=== PATIENT | male | born 1940 | race Caucasian/White ===

== ENCOUNTER 2017-11-26 08:30 | Outpatient (CLI) | payer OTHER | END 2017-11-26 08:41 | disposition home or self-care (01) | LOC: RAD 08:30 | DX: R05 Cough (principal) ==

== ENCOUNTER 2018-04-08 10:06 | Outpatient (CLI) | payer OTHER | END 2018-04-08 12:00 | disposition home or self-care (01) | LOC: LAB 10:06 | DX: H53.9 Unspecified visual disturbance (principal) ==

== ENCOUNTER 2018-04-08 10:21 | Outpatient (CLI) | payer OTHER | END 2018-04-08 12:06 | disposition home or self-care (01) | LOC: RAD 10:21 | DX: J43.8 Other emphysema (principal) ==

== ENCOUNTER 2018-04-24 10:18 | Outpatient (CLI) | payer OTHER | END 2018-04-24 15:00 | disposition home or self-care (01) | LOC: LAB 10:18 | DX: R97.20 Elevated prostate specific antigen [PSA] (principal) ==

== ENCOUNTER 2018-05-29 09:41 | Outpatient (CLI) | payer OTHER | END 2018-05-29 09:58 | disposition home or self-care (01) | LOC: TOM 09:41 | DX: K56.699 Other intestinal obstruction unspecified as to partial versus complete obstruction (principal); K52.89 Other specified noninfective gastroenteritis and colitis ==

== ENCOUNTER 2018-06-05 11:02 | Outpatient (CLI) | payer OTHER | END 2018-06-05 16:32 | disposition home or self-care (01) | LOC: TOM 11:02 | DX: R91.8 Other nonspecific abnormal finding of lung field (principal) ==

== ENCOUNTER → 2020-02-16 09:02 | Outpatient (CLI) | payer OTHER | END | disposition home or self-care (01) | LOC: LAB 02-15 15:04 | PROVIDERS: ATTEND Internal Medicine Cardiovascular Disease | DX: I10 Essential (primary) hypertension (principal); E11.9 Type 2 diabetes mellitus without complications; D68.8 Other specified coagulation defects ==

== ENCOUNTER 2020-02-16 09:41 | Outpatient (CLI) | payer OTHER | END 2020-02-16 12:44 | disposition home or self-care (01) | LOC: TOM 09:41 | PROVIDERS: ATTEND Internal Medicine Cardiovascular Disease | DX: J44.9 Chronic obstructive pulmonary disease, unspecified (principal) ==

== ENCOUNTER → 2020-12-28 07:54 | Outpatient (CLI) | payer OTHER | END | disposition home or self-care (01) | LOC: LAB 07:54 | DX: K52.89 Other specified noninfective gastroenteritis and colitis (principal); K86.2 Cyst of pancreas; E03.8 Other specified hypothyroidism; E11.9 Type 2 diabetes mellitus without complications; N40.0 Benign prostatic hyperplasia without lower urinary tract symptoms; E78.49 Other hyperlipidemia ==

== ENCOUNTER → 2020-12-28 | Outpatient (CLI) | payer OTHER ==
[~2020-12-28] MED LIST: ALPHAGAN P5 ML; BENZONATATE200 M1 PO; BREO ELLIPTA 21 EACH IH; BUDESONIDE0.25 MG/2 IH; CARdura 2MG TABLET PO; LEVALBUTER1.25 MG/0. IH; LEVALBUTER1.25 MG/3 IH; LIPITOR40 MG PO; LOSARTAN-HCTZ1 EAC2 PO; MEDROL4 MG PO; MESALAMINE4 GM/60 M1; MESALAMINE800 MG PO; RELPAX40 MG PO; TOPROL XL25 M1 PO; ULTRACET PO; XOPENEX CO1.25 MG/0. IH
== END | disposition home or self-care (01) ==
LOC: MRI 09:23
PROVIDERS: ATTEND Pain Medicine Interventional Pain Medicine
DX: M54.2 Cervicalgia (principal)
CPT/HCPCS: 72141

== ENCOUNTER → 2021-04-27 06:38 | Outpatient (CLI) | payer OTHER | END | disposition home or self-care (01) | LOC: MRI 06:38 | DX: C25.9 Malignant neoplasm of pancreas, unspecified (principal) | CPT/HCPCS: 74181; 74183 ==

== ENCOUNTER → 2021-05-22 | Outpatient (CLI) | payer OTHER | END | disposition home or self-care (01) | LOC: MRI 08:44 | DX: M25.422 Effusion, left elbow (principal); M25.522 Pain in left elbow; M25.512 Pain in left shoulder | CPT/HCPCS: 72142; 72147; 72158 ==

== ENCOUNTER → 2021-05-23 | Outpatient (CLI) | payer OTHER | END | disposition home or self-care (01) | LOC: MRI 11:23 | PROVIDERS: ATTEND Orthopaedic Surgery | DX: M25.522 Pain in left elbow (principal); R60.0 Localized edema | CPT/HCPCS: 73221 ==

== ENCOUNTER → 2021-06-08 | Outpatient (CLI) | payer OTHER | END | disposition home or self-care (01) | LOC: MRI 12:27 | PROVIDERS: ATTEND Orthopaedic Surgery | DX: M25.422 Effusion, left elbow (principal); M25.522 Pain in left elbow; S42.402A Unspecified fracture of lower end of left humerus, initial encounter for closed fracture | CPT/HCPCS: 73221 ==

== ENCOUNTER 2021-07-05 10:25 | Outpatient (CLI) | payer OTHER | END 2021-07-05 10:35 | disposition home or self-care (01) | LOC: RAD 10:25 | PROVIDERS: ATTEND Internal Medicine Cardiovascular Disease | DX: M12.88 Other specific arthropathies, not elsewhere classified, other specified site (principal) ==

== ENCOUNTER → 2021-07-05 | Outpatient (CLI) | payer OTHER | END | disposition home or self-care (01) | LOC: NUCLEAR 07:00 | PROVIDERS: ATTEND Internal Medicine Cardiovascular Disease | DX: I10 Essential (primary) hypertension (principal) ==

== ENCOUNTER 2021-12-19 13:50 | Outpatient (CLI) | payer OTHER | END 2021-12-19 14:20 | disposition home or self-care (01) | LOC: PPH VACUNA 13:50 | PROVIDERS: ATTEND Emergency Medicine Pediatric Emergency Medicine | DX: Z23 Encounter for immunization (principal) ==

== ENCOUNTER 2022-03-20 17:37 | Inpatient (IN) | payer OTHER ==
[~2022-03-20] VITALS: Ht 175.3 cm; Wt 86.2 kg
[2022-03-20] MEDS ORDERED: SYNTHROID50 MCG (17:48)
[2022-03-20] MEDS ORDERED: LIPITOR40 M1 (17:48)
--- NOTE | 2022-03-20 17:50 | NUR ---
SE RECIBE MASCULINO ALERTA Y ORIENTADO POR ANTHONY ESFERAS, AMBULANDO. REFIERE QUE PRESENTA VOMITOS DESDE NOHEMY EN LA NOCHE Y DOLOR ABDOMINAL.
--- NOTE | 2022-03-20 18:36 | NUR ---
SE ORIENTA PTE SOBRE TX A SEGUIR, EL CUAL REFIERE ENTENDER. SE COLECTAN MUESTRAS Y SE CANALIZA PTE UTILIZANDO MEDIDAS ASEPTICAS. SE ADMISTRAN MEDICAMENTOS KRISHNA ORDEN MEDICA.
[2022-03-21] MEDS ORDERED: BUDESONIDE0.5 MG/21 (08:54)
[2022-03-21] MEDS ORDERED: TRELEGY ELLIPT1 EAC1 (08:54)
[2022-03-21] MEDS ORDERED: DALIRESP500 MCG (08:55)
[2022-03-21] MEDS ORDERED: TAMSULOSIN HCL0.4 MG (08:55)
[2022-03-21] MEDS ORDERED: ALBUTEROL2.5 MG/3 M (08:55)
== END 2022-03-29 17:27 | disposition home or self-care (01) | DRG 391 ==
LOC: ER 17:37 → MEDI 22:56
PROVIDERS: ADMIT Internal Medicine; ATTEND Internal Medicine
PROC: BW21ZZZ Computerized Tomography (CT Scan) of Abdomen and Pelvis (ICD-10-PCS; principal; 2022-03-20)
PROC: 02HV33Z Insertion of Infusion Device into Superior Vena Cava, Percutaneous Approach (ICD-10-PCS; 2022-03-23)
PROC: CD271ZZ Tomographic (Tomo) Nuclear Medicine Imaging of Gastrointestinal Tract using Technetium 99m (Tc-99m) (ICD-10-PCS; 2022-03-25)
DX: K29.00 Acute gastritis without bleeding (principal); I50.31 Acute diastolic (congestive) heart failure; K90.49 Malabsorption due to intolerance, not elsewhere classified; I13.0 Hypertensive heart and chronic kidney disease with heart failure and stage 1 through stage 4 chronic kidney disease, or unspecified chronic kidney disease; K28.9 Gastrojejunal ulcer, unspecified as acute or chronic, without hemorrhage or perforation; N18.30 Chronic kidney disease, stage 3 unspecified; J44.9 Chronic obstructive pulmonary disease, unspecified; Z85.07 Personal history of malignant neoplasm of pancreas; E78.49 Other hyperlipidemia; G47.33 Obstructive sleep apnea (adult) (pediatric)

== ENCOUNTER 2023-07-04 14:48 | Outpatient (CLI) | payer OTHER ==
[~2023-07-04 14:48] MED LIST changes: +ALBUTEROL2.5 MG/3 M; +BUDESONIDE0.5 MG/21; +DALIRESP500 MCG; +LIPITOR40 M1; +SYNTHROID50 MCG; +TAMSULOSIN HCL0.4 MG; +TRELEGY ELLIPT1 EAC1
== END 2023-07-04 14:55 | disposition home or self-care (01) ==
LOC: TOM 14:48
PROVIDERS: ATTEND Internal Medicine Cardiovascular Disease
DX: J12.1 Respiratory syncytial virus pneumonia (principal); J12.89 Other viral pneumonia

== ENCOUNTER 2023-07-07 08:57 | Inpatient (IN) | payer OTHER ==
[~2023-07-07] VITALS: Ht 170.2 cm; Wt 83.9 kg
[2023-07-07 10:16] LABS: HEMATOCRIT 34.1 % (39.0-48.0); HEMOGLOBIN 11.2 g/dL (13-16.00); MEAN CELL VOLUME 88.4 fL (80.0-100.00); MEAN CORPUSCULAR HEMOGLOBIN 28.9 pg (27.00-32.0); MEAN CORPUSCULAR HGB CONC 32.7 g/dl (32.0-36.0); PLATELET COUNT 227 K/uL (150-450); RED BLOOD COUNT 3.86 M/uL (4.00-6.00); RED CELL DISTRIBUTION WIDTH 19.5 % (11.5-14.5)
[2023-07-07 11:14] LABS: ALBUMIN 2.9 gm/dL (3.4-5.0); BILIRUBIN TOTAL 0.6 mg/dL (0.3-1.2); C-REACTIVE PROTEIN 0.79 MG/DL (0.00-0.29); CALCIUM 8.6 mg/dL (8.5-10.1); CREATININE SERUM 1.2 mg/dL (0.70-1.30); GFR 57.96; GLOBULINA 3.4 G/DL (2.4-3.5); POTASSIUM 3.58 mEq/L (3.5-5.1); TOTAL PROTEIN 6.3 gm/dL (6.4-8.2)
[2023-07-07 11:23] LABS: ABG PO2 74.5 mmHg (80-100); ABG pCO2 33.2 mmHg (35-45)
[2023-07-07 11:24] LABS: BASE EXCESS -2.5 mmol/l; Tco2 22.1 mmol/l; o2 32 %
[2023-07-07 11:25] LABS: allen test SATISFACTORY; puncture site RADIAL LEFT
[2023-07-07 19:30] LABS: INR 1.04; PARTIAL THROMBOPLASTIN TIME 25.6 SECONDS (22.0-34.0); PROTHROMBIN TIME 10.9 SECONDS (9.0-11.5)
[2023-07-08 09:39] LABS: PH,URINE 5.5 (5.0-8.0); URINE APPEARANCE Clear; URINE BACTERIA 57.9 uL (0.0-1933); URINE BILIRRUBIN Negative (NEGATIVE); URINE BLOOD Negative; URINE COLOR Yellow; URINE EPITHELIAL CELLS 30.6 uL (0.0-38.8); URINE GLUCOSE Negative (NEGATIVE); URINE LEUKOCYTE Moderate; URINE NITRATE Negative; URINE PROTEIN Trace (NEGATIVE); URINE RBC 9.6 uL (0.0-20.8); URINE UROBILINOGEN 0.2 E.U./dl; URINE WBC 155.4 uL (0.0-23.2)
[2023-07-11] MEDS ORDERED: LEVOTHYROXINE50 MCG PO (15:04)
[2023-07-11] MEDS ORDERED: DILTIAZEM 24HR180 MG PO (15:04)
[2023-07-11] MEDS ORDERED: LIPITOR40 M1 PO (15:04)
[2023-07-11] MEDS ORDERED: INTESTINEX680 M1 PO (15:04)
[2023-07-11] MEDS ORDERED: MEDROLPACK PO (15:04)
[2023-07-11] MEDS ORDERED: POM (MEDICAMENTO EN OP (15:04)
[2023-07-11] MEDS ORDERED: FAMOTIDINE20 MG PO (15:04)
[2023-07-11] MEDS ORDERED: DELZICOL400 M1 PO (15:04)
[2023-07-11] MEDS ORDERED: MONTELUKAST SOD10 MG PO (15:04)
[2023-07-11] MEDS ORDERED: LEVOFLOXACIN750 MG PO (15:04)
[2023-07-11] MEDS ORDERED: IPRAT-ALBUT 0.5-3 ML IH (15:04)
[2023-07-11] MEDS ORDERED: TAMS0.4C PO (15:04)
[2023-07-11] MEDS ORDERED: BUDESONIDE0.5 MG/2 M IH (15:04)
== END 2023-07-11 15:35 | disposition home or self-care (01) | DRG 194 ==
LOC: ER → MEDI 18:36
PROVIDERS: Emergency Medicine; General Practice; ADMIT Internal Medicine; ATTEND Internal Medicine
PROC: 3E0F7GC Introduction of Other Therapeutic Substance into Respiratory Tract, Via Natural or Artificial Opening (ICD-10-PCS; principal; 2023-07-07)
PROC: 3E0F7SF Introduction of Other Gas into Respiratory Tract, Via Natural or Artificial Opening (ICD-10-PCS; 2023-07-07)
DX: J18.8 Other pneumonia, unspecified organism (principal); J44.1 Chronic obstructive pulmonary disease with (acute) exacerbation; N17.9 Acute kidney failure, unspecified; G47.33 Obstructive sleep apnea (adult) (pediatric); R09.02 Hypoxemia; I12.9 Hypertensive chronic kidney disease with stage 1 through stage 4 chronic kidney disease, or unspecified chronic kidney disease; N18.9 Chronic kidney disease, unspecified; E03.9 Hypothyroidism, unspecified; Z87.891 Personal history of nicotine dependence; Z85.07 Personal history of malignant neoplasm of pancreas

== ENCOUNTER 2023-07-12 22:24 | Inpatient (IN) | payer OTHER ==
[~2023-07-12] VITALS: Ht 152.4 cm; Wt 8618.3 kg
[~2023-07-12 22:24] MED LIST changes: +BUDESONIDE0.5 MG/2 M IH; +DELZICOL400 M1 PO; +DILTIAZEM 24HR180 MG PO; +FAMOTIDINE20 MG PO; +INTESTINEX680 M1 PO; +IPRAT-ALBUT 0.5-3 ML IH; +LEVOFLOXACIN750 MG PO; +LEVOTHYROXINE50 MCG PO; +LIPITOR40 M1 PO; +MEDROLPACK PO; +MONTELUKAST SOD10 MG PO; +POM (MEDICAMENTO EN OP; +TAMS0.4C PO
[2023-07-13 01:21] LABS: MEAN CELL VOLUME 88.4 fL (80.0-100.00); MEAN CORPUSCULAR HEMOGLOBIN 28.6 pg (27.00-32.0); MEAN CORPUSCULAR HGB CONC 32.4 g/dl (32.0-36.0); PLATELET COUNT 221 K/uL (150-450); RED BLOOD COUNT 3.85 M/uL (4.00-6.00); RED CELL DISTRIBUTION WIDTH 19.5 % (11.5-14.5)
[2023-07-13 01:31] LABS: ALBUMIN 3.2 gm/dL (3.4-5.0); BILIRUBIN TOTAL 0.55 mg/dL (0.3-1.2); CALCIUM 9.4 mg/dL (8.5-10.1); CREATININE SERUM 1.55 mg/dL (0.70-1.30); GFR 43.14; GLOBULINA 3.2 G/DL (2.4-3.5); POTASSIUM 3.95 mEq/L (3.5-5.1); TOTAL PROTEIN 6.4 gm/dL (6.4-8.2)
[2023-07-13 04:38] LABS: ABG PH 7.284 (7.35-7.45); ABG pCO2 46.3 mmHg (35-45)
[2023-07-13 04:39] LABS: BASE EXCESS -5.3 mmol/l; BICARBONATE 21.5 mmol/l (23-25); SaO2 97.1 %; Tco2 22.9 mmol/l
[2023-07-13 04:40] LABS: allen test SATISFACTORY; o2 36 %; puncture site RADIAL RIGHT
[2023-07-13 09:19] LABS: ABG PH 7.362 (7.35-7.45); ABG PO2 84.9 mmHg (80-100); BASE EXCESS -3.8 mmol/l; BICARBONATE 21.1 mmol/l (23-25); SaO2 95.8 %; Tco2 22.2 mmol/l
[2023-07-13 09:20] LABS: allen test SATISFACTORY; o2 32 %; puncture site RADIAL RIGHT
[2023-07-14 07:52] LABS: HEMATOCRIT 30.9 % (39.0-48.0); HEMOGLOBIN 10.1 g/dL (13-16.00); MEAN CELL VOLUME 89.1 fL (80.0-100.00); MEAN CORPUSCULAR HEMOGLOBIN 29.2 pg (27.00-32.0); MEAN CORPUSCULAR HGB CONC 32.7 g/dl (32.0-36.0); PLATELET COUNT 137 K/uL (150-450); RED BLOOD COUNT 3.47 M/uL (4.00-6.00)
[2023-07-14 08:03] LABS: ERYTHROCYTE SEDIMENTATION RATE 5 mm/hr
[2023-07-14 08:17] LABS: ALBUMIN 2.7 gm/dL (3.4-5.0); BILIRUBIN TOTAL 0.63 mg/dL (0.3-1.2); CALCIUM 8.9 mg/dL (8.5-10.1); CREATININE SERUM 1.64 mg/dL (0.70-1.30); GFR 40.42; GLOBULINA 2.6 G/DL (2.4-3.5); MAGNESIUM 2.3 mg/dL (1.8-2.4); PHOSPHOROUS 3.3 mg/dL (2.5-4.9); POTASSIUM 3.64 mEq/L (3.5-5.1); TOTAL PROTEIN 5.3 gm/dL (6.4-8.2); TSH 0.626 uIU/mL (0.358-3.74)
[2023-07-14 08:27] LABS: C-REACTIVE PROTEIN 6.24 MG/DL (0.00-0.29)
[2023-07-14 20:49] LABS: HEMATOCRIT 30.4 % (39.0-48.0); HEMOGLOBIN 9.8 g/dL (13-16.00); MEAN CELL VOLUME 87.2 fL (80.0-100.00); MEAN CORPUSCULAR HEMOGLOBIN 28.2 pg (27.00-32.0); MEAN CORPUSCULAR HGB CONC 32.3 g/dl (32.0-36.0); PLATELET COUNT 170 K/uL (150-450); RED BLOOD COUNT 3.49 M/uL (4.00-6.00); RED CELL DISTRIBUTION WIDTH 19.6 % (11.5-14.5)
[2023-07-14 21:06] LABS: ALBUMIN 2.4 gm/dL (3.4-5.0); CALCIUM 8.5 mg/dL (8.5-10.1); CREATININE SERUM 1.56 mg/dL (0.70-1.30); GFR 42.82; PHOSPHOROUS 4.3 mg/dL (2.5-4.9); POTASSIUM 3.87 mEq/L (3.5-5.1)
[2023-07-14 21:16] LABS: ABG PH 7.281 (7.35-7.45); ABG PO2 205.8 mmHg (80-100); ABG pCO2 48.9 mmHg (35-45); BASE EXCESS -4.6 mmol/l; BICARBONATE 22.5 mmol/l (23-25); SaO2 99.6 %
[2023-07-14 21:17] LABS: allen test SATISFACTORY; o2 100 %; puncture site RADIAL LEFT
[2023-07-14 21:40] LABS: ABG PH 7.345 (7.35-7.45); ABG pCO2 37.8 mmHg (35-45); BASE EXCESS -4.9 mmol/l; BICARBONATE 20.2 mmol/l (23-25); SaO2 99.4 %; Tco2 21.4 mmol/l
[2023-07-14 21:41] LABS: allen test SATISFACTORY; o2 60 %; puncture site RADIAL RIGHT
[2023-07-14 22:36] LABS: ABG PH 7.179 (7.35-7.45); ABG PO2 338.9 mmHg (80-100); ABG pCO2 55.7 mmHg (35-45); BASE EXCESS -8.7 mmol/l; BICARBONATE 20.3 mmol/l (23-25); SaO2 99.9 %
[2023-07-14 22:37] LABS: allen test SATISFACTORY; o2 100 %; puncture site RADIAL LEFT
[2023-07-15 07:21] LABS: HEMATOCRIT 30.6 % (39.0-48.0); HEMOGLOBIN 10.1 g/dL (13-16.00); MEAN CELL VOLUME 88.2 fL (80.0-100.00); MEAN CORPUSCULAR HGB CONC 32.9 g/dl (32.0-36.0); PLATELET COUNT 152 K/uL (150-450); RED BLOOD COUNT 3.47 M/uL (4.00-6.00); RED CELL DISTRIBUTION WIDTH 19.8 % (11.5-14.5)
[2023-07-15 07:40] LABS: ALBUMIN 2.6 gm/dL (3.4-5.0); BILIRUBIN TOTAL 0.82 mg/dL (0.3-1.2); CALCIUM 8.5 mg/dL (8.5-10.1); CREATININE SERUM 2.17 mg/dL (0.70-1.30); GFR 29.26; GLOBULINA 2.4 G/DL (2.4-3.5); POTASSIUM 4.3 mEq/L (3.5-5.1)
[2023-07-15] MEDS ORDERED: BREZTRI AEROS10.7 GM (10:16)
[2023-07-15 10:25] LABS: ABG PH 7.366 (7.35-7.45)
[2023-07-15 10:26] LABS: ABG PO2 209.9 mmHg (80-100); ABG pCO2 37.1 mmHg (35-45); BICARBONATE 20.8 mmol/l (23-25); SaO2 99.7 %; Tco2 21.9 mmol/l; allen test SATISFACTORY; o2 60 %; puncture site RADIAL RIGHT
[2023-07-15 17:10] LABS: CALCIUM 8.1 mg/dL (8.5-10.1); CHOL HDL RATIO 1.6 (0-5.0); CREATININE SERUM 2.65 mg/dL (0.70-1.30); GFR 23.23; POTASSIUM 4.24 mEq/L (3.5-5.1)
[2023-07-16 11:43] LABS: ABG PH 7.348 (7.35-7.45); ABG PO2 108.5 mmHg (80-100); ABG pCO2 34.4 mmHg (35-45); BASE EXCESS -6.2 mmol/l; BICARBONATE 18.5 mmol/l (23-25); SaO2 97.7 %; Tco2 19.5 mmol/l
[2023-07-16 11:44] LABS: allen test SATISFACTORY; o2 40 %; puncture site RADIAL RIGHT
[2023-07-17 08:30] LABS: HEMATOCRIT 24.1 % (39.0-48.0); MEAN CORPUSCULAR HGB CONC 32.4 g/dl (32.0-36.0); RED BLOOD COUNT 2.74 M/uL (4.00-6.00); RED CELL DISTRIBUTION WIDTH 19.5 % (11.5-14.5)
[2023-07-17 08:36] LABS: ERYTHROCYTE SEDIMENTATION RATE 2 mm/hr
[2023-07-17 08:39] LABS: MEAN CORPUSCULAR HEMOGLOBIN 28.4 pg (27.00-32.0)
[2023-07-17 08:40] LABS: BILIRUBIN TOTAL 0.39 mg/dL (0.3-1.2); CALCIUM 7.6 mg/dL (8.5-10.1); CREATININE SERUM 2.06 mg/dL (0.70-1.30); GFR 31.07; GLOBULINA 2.1 G/DL (2.4-3.5); HEMOGLOBIN 7.8 g/dL (13-16.00); PLATELET COUNT 75 K/uL (150-450); POTASSIUM 3.81 mEq/L (3.5-5.1); TOTAL PROTEIN 4.1 gm/dL (6.4-8.2)
[2023-07-17 08:42] LABS: C-REACTIVE PROTEIN 2.58 MG/DL (0.00-0.29)
[2023-07-17 09:39] LABS: ABG PH 7.288 (7.35-7.45); ABG PO2 91.1 mmHg (80-100); BASE EXCESS -6.6 mmol/l; BICARBONATE 19.7 mmol/l (23-25); SaO2 95.5 %; Tco2 20.9 mmol/l; o2 40 %
[2023-07-17 09:40] LABS: allen test SATISFACTORY; puncture site RADIAL RIGHT
[2023-07-17 12:10] LABS: MEAN CELL VOLUME 88.1 fL (80.0-100.00); MEAN CORPUSCULAR HGB CONC 32.4 g/dl (32.0-36.0); RED BLOOD COUNT 2.72 M/uL (4.00-6.00); RED CELL DISTRIBUTION WIDTH 19.6 % (11.5-14.5)
[2023-07-17 12:13] LABS: MEAN CORPUSCULAR HEMOGLOBIN 28.6 pg (27.00-32.0); PLATELET COUNT 84 K/uL (150-450)
[2023-07-17 12:14] LABS: HEMOGLOBIN 7.8 g/dL (13-16.00)
[2023-07-18 11:47] LABS: ABG PH 7.389 (7.35-7.45); ABG pCO2 29.7 mmHg (35-45); BICARBONATE 17.5 mmol/l (23-25); SaO2 95.9 %; Tco2 18.4 mmol/l
[2023-07-18 11:48] LABS: allen test SATISFACTORY; o2 40 %; puncture site RADIAL RIGHT
[2023-07-19 09:13] LABS: ABG PH 7.293 (7.35-7.45); ABG PO2 114.7 mmHg (80-100); ABG pCO2 41.5 mmHg (35-45); BASE EXCESS -6.5 mmol/l; BICARBONATE 19.7 mmol/l (23-25); SaO2 97.7 %; Tco2 20.9 mmol/l
[2023-07-19 09:14] LABS: allen test SATISFACTORY; o2 40 %; puncture site RADIAL RIGHT
[2023-07-19 11:23] LABS: HEMATOCRIT 33.6 % (39.0-48.0); HEMOGLOBIN 10.9 g/dL (13-16.00); MEAN CELL VOLUME 87.4 fL (80.0-100.00); MEAN CORPUSCULAR HEMOGLOBIN 28.4 pg (27.00-32.0); MEAN CORPUSCULAR HGB CONC 32.5 g/dl (32.0-36.0); RED BLOOD COUNT 3.85 M/uL (4.00-6.00); RED CELL DISTRIBUTION WIDTH 20.7 % (11.5-14.5)
[2023-07-19 11:29] LABS: PLATELET COUNT 56 K/uL (150-450)
[2023-07-19 12:06] LABS: ALBUMIN 2.3 gm/dL (3.4-5.0); BILIRUBIN TOTAL 0.68 mg/dL (0.3-1.2); CALCIUM 7.4 mg/dL (8.5-10.1); GFR 42.2; GLOBULINA 2.4 G/DL (2.4-3.5); MAGNESIUM 2.2 mg/dL (1.8-2.4); PHOSPHOROUS 3.7 mg/dL (2.5-4.9); POTASSIUM 3.45 mEq/L (3.5-5.1); TOTAL PROTEIN 4.7 gm/dL (6.4-8.2)
[2023-07-19 12:16] LABS: CREATININE SERUM 1.58 mg/dL (0.70-1.30)
[2023-07-20 07:54] LABS: BILIRUBIN TOTAL 0.51 mg/dL (0.3-1.2); CALCIUM 7.5 mg/dL (8.5-10.1); CREATININE SERUM 1.56 mg/dL (0.70-1.30); GFR 42.82; POTASSIUM 3.67 mEq/L (3.5-5.1)
[2023-07-20 07:57] LABS: HEMATOCRIT 30.5 % (39.0-48.0); HEMOGLOBIN 10.3 g/dL (13-16.00); MEAN CELL VOLUME 84.9 fL (80.0-100.00); MEAN CORPUSCULAR HEMOGLOBIN 28.7 pg (27.00-32.0); MEAN CORPUSCULAR HGB CONC 33.8 g/dl (32.0-36.0); RED BLOOD COUNT 3.59 M/uL (4.00-6.00); RED CELL DISTRIBUTION WIDTH 20.4 % (11.5-14.5)
[2023-07-20 08:37] LABS: ABG PH 7.379 (7.35-7.45); ABG PO2 114.5 mmHg (80-100); ABG pCO2 33.9 mmHg (35-45); SaO2 98.3 %
[2023-07-20 08:38] LABS: BASE EXCESS -4.6 mmol/l; BICARBONATE 19.6 mmol/l (23-25); Tco2 20.6 mmol/l; allen test SATISFACTORY; o2 40 %; puncture site RADIAL RIGHT
[2023-07-20 08:39] LABS: PLT IN CITRATE 71 K/uL (150-450)
[2023-07-20 10:17] LABS: PLATELET COUNT 62 K/uL (150-450)
[2023-07-20 15:45] LABS: URINE APPEARANCE Cloudy; URINE BILIRRUBIN Negative (NEGATIVE); URINE BLOOD Large; URINE COLOR Yellow; URINE GLUCOSE Negative (NEGATIVE); URINE LEUKOCYTE Moderate; URINE NITRATE Negative; URINE PROTEIN 30 (NEGATIVE)
[2023-07-20 15:48] LABS: URINE BACTERIA 117.1 uL (0.0-1933); URINE EPITHELIAL CELLS 2.4 uL (0.0-38.8); URINE RBC 573.4 uL (0.0-20.8)
[2023-07-20 16:22] LABS: URINE YEAST MANY /hpf
[2023-07-21 07:48] LABS: HEMATOCRIT 32.5 % (39.0-48.0); HEMOGLOBIN 10.8 g/dL (13-16.00); MEAN CELL VOLUME 86.2 fL (80.0-100.00); MEAN CORPUSCULAR HEMOGLOBIN 28.8 pg (27.00-32.0); MEAN CORPUSCULAR HGB CONC 33.3 g/dl (32.0-36.0); RED BLOOD COUNT 3.76 M/uL (4.00-6.00); RED CELL DISTRIBUTION WIDTH 19.3 % (11.5-14.5)
[2023-07-21 07:54] LABS: PLATELET COUNT 49 K/uL (150-450)
[2023-07-21 08:01] LABS: INR 1.12; PARTIAL THROMBOPLASTIN TIME 30.5 SECONDS (22.0-34.0); PROTHROMBIN TIME 11.7 SECONDS (9.0-11.5)
[2023-07-21 08:22] LABS: ALBUMIN 2.1 gm/dL (3.4-5.0); BILIRUBIN TOTAL 0.69 mg/dL (0.3-1.2); BILIRUBIN,CONJUGATED 0.27 mg/dL (0.0-0.2); BILIRUBIN,UNCONJUGATED 0.42 mg/dL (0.0-0.6); CALCIUM 7.5 mg/dL (8.5-10.1); CHOL HDL RATIO 1.6 (0-5.0); CREATININE SERUM 1.13 mg/dL (0.70-1.30); GFR 62.13; POTASSIUM 3.29 mEq/L (3.5-5.1); TOTAL PROTEIN 4.1 gm/dL (6.4-8.2)
[2023-07-21 09:30] LABS: ABG PH 7.334 (7.35-7.45); ABG PO2 130.2 mmHg (80-100); ABG pCO2 38.1 mmHg (35-45); BASE EXCESS -5.5 mmol/l; BICARBONATE 19.8 mmol/l (23-25); SaO2 98.6 %
[2023-07-21 09:31] LABS: allen test SATISFACTORY; o2 40 %; puncture site RADIAL RIGHT
[2023-07-21 13:24] LABS: UREA CLEARANCE 17.3 ML/MIN
[2023-07-22 08:07] LABS: HEMATOCRIT 30.7 % (39.0-48.0); HEMOGLOBIN 10.3 g/dL (13-16.00); MEAN CELL VOLUME 85.5 fL (80.0-100.00); MEAN CORPUSCULAR HEMOGLOBIN 28.8 pg (27.00-32.0); MEAN CORPUSCULAR HGB CONC 33.7 g/dl (32.0-36.0); RED BLOOD COUNT 3.59 M/uL (4.00-6.00); RED CELL DISTRIBUTION WIDTH 19.6 % (11.5-14.5)
[2023-07-22 08:08] LABS: PLATELET COUNT 39 K/uL (150-450)
[2023-07-22 08:32] LABS: BILIRUBIN TOTAL 0.68 mg/dL (0.3-1.2); CALCIUM 7.3 mg/dL (8.5-10.1); CREATININE SERUM 0.98 mg/dL (0.70-1.30); GFR 73.22; GLOBULINA 1.9 G/DL (2.4-3.5); POTASSIUM 3.26 mEq/L (3.5-5.1); TOTAL PROTEIN 3.9 gm/dL (6.4-8.2)
[2023-07-22 15:20] LABS: ABG PH 7.316 (7.35-7.45); ABG PO2 125.3 mmHg (80-100); ABG pCO2 41.6 mmHg (35-45); BASE EXCESS -5.1 mmol/l; BICARBONATE 20.8 mmol/l (23-25); SaO2 98.4 %
[2023-07-22 15:21] LABS: allen test SATISFACTORY; o2 40 %; puncture site RADIAL RIGHT
[2023-07-23 19:58] LABS: ABG PH 7.343 (7.35-7.45); ABG PO2 137.4 mmHg (80-100); ABG pCO2 36.8 mmHg (35-45); BASE EXCESS -5.5 mmol/l; BICARBONATE 19.5 mmol/l (23-25); SaO2 98.8 %; Tco2 20.6 mmol/l
[2023-07-23 19:59] LABS: allen test SATISFACTORY; o2 40 %; puncture site RADIAL RIGHT
== END 2023-07-23 09:35 | disposition designated cancer center or children's hospital (05) | DRG 393 ==
LOC: ER 22:24 → ICU 07-13 10:51 → SURH 07-13 10:51 → SEC-K 07-13 10:51 → SURH 07-13 11:02 → ICU 07-15 01:06
PROVIDERS: Anesthesiology; General Practice; Internal Medicine; Internal Medicine Gastroenterology; Internal Medicine Geriatric Medicine; Internal Medicine Infectious Disease; Internal Medicine Nephrology; ADMIT Internal Medicine; ATTEND Internal Medicine
PROC: 4A12X4Z Monitoring of Cardiac Electrical Activity, External Approach (ICD-10-PCS; 2023-07-13)
PROC: 02HV33Z Insertion of Infusion Device into Superior Vena Cava, Percutaneous Approach (ICD-10-PCS; 2023-07-13)
PROC: BW21ZZZ Computerized Tomography (CT Scan) of Abdomen and Pelvis (ICD-10-PCS; 2023-07-13)
PROC: 0DC58ZZ Extirpation of Matter from Esophagus, Via Natural or Artificial Opening Endoscopic (ICD-10-PCS; principal; 2023-07-14 18:00)
PROC: 5A2204Z Restoration of Cardiac Rhythm, Single (ICD-10-PCS; 2023-07-15)
PROC: 3E0G8GC Introduction of Other Therapeutic Substance into Upper GI, Via Natural or Artificial Opening Endoscopic (ICD-10-PCS; 2023-07-16)
PROC: 0DC58ZZ Extirpation of Matter from Esophagus, Via Natural or Artificial Opening Endoscopic (ICD-10-PCS; 2023-07-16)
PROC: 30233N1 Transfusion of Nonautologous Red Blood Cells into Peripheral Vein, Percutaneous Approach (ICD-10-PCS; 2023-07-17)
PROC: 0BH17EZ Insertion of Endotracheal Airway into Trachea, Via Natural or Artificial Opening (ICD-10-PCS; 2023-07-22)
PROC: 5A1935Z Respiratory Ventilation, Less than 24 Consecutive Hours (ICD-10-PCS; 2023-07-22)
DX: T18.128A Food in esophagus causing other injury, initial encounter (principal); J69.0 Pneumonitis due to inhalation of food and vomit; J95.821 Acute postprocedural respiratory failure; N17.0 Acute kidney failure with tubular necrosis; J86.0 Pyothorax with fistula; R65.21 Severe sepsis with septic shock; J44.1 Chronic obstructive pulmonary disease with (acute) exacerbation; I47.19 Other supraventricular tachycardia; N39.0 Urinary tract infection, site not specified; I97.121 Postprocedural cardiac arrest following other surgery; K22.0 Achalasia of cardia; K31.84 Gastroparesis; G47.33 Obstructive sleep apnea (adult) (pediatric); E03.9 Hypothyroidism, unspecified; I95.9 Hypotension, unspecified; E86.0 Dehydration; I12.9 Hypertensive chronic kidney disease with stage 1 through stage 4 chronic kidney disease, or unspecified chronic kidney disease; N18.30 Chronic kidney disease, stage 3 unspecified; D63.1 Anemia in chronic kidney disease; I48.0 Paroxysmal atrial fibrillation